=== PATIENT | male | born 1930 | race Caucasian/White ===

== ENCOUNTER 2019-02-20 16:24 | Emergency (ER) | payer MEDICARE, OTHER ==
[~2019-02-20] VITALS: Ht 172.7 cm; Wt 54.4 kg
[2019-02-20] MEDS ORDERED: MORPHINE SULFATE 4 MG/ML SYR/VIAL IV ONE (17:00)
[2019-02-20] MEDS ORDERED: ONDANSETRON HCL 4 MG/2 ML VIAL IV ONE (17:00)
[2019-02-20 18:22] LABS: Basophils # (auto) 0 uL; Eosinophils # (auto) 0 uL; Hematocrit 39.6 % (41.0-53.0); Hemoglobin 13.2 g/dL (13.5-17.5); Lymphocytes # (auto) 0.7 uL; Lymphocytes % (auto) 5.2 % (10.0-50.0); Mean Corpuscular Hemoglobin 32.8 pg (28.0-32.0); Mean Corpuscular Hgb Conc. 33.3 g/dL (32.0-36.0); Mean Corpuscular Volume 98.5 fL (80.0-100.0); Monocytes # (auto) 1.1 uL; Monocytes % (auto) 8.4 % (0.0-12.0); Neutrophils # (auto) 10.9 uL; Neutrophils % (auto) 86.4 % (37.0-80.0); Platelet Count (auto) 204 10^3/uL (140-450); Red Blood Cells 4.02 10^6/uL (4.5-5.90); Red Cell Distribution Width 14.2 % (11.8-14.3); White Blood Cell 12.7 10^3/uL (4.4-10.8)
[2019-02-20 18:34] LABS: Potassium 4.1 mmol/L (3.5-5.1)
[2019-02-20 18:35] LABS: INR 1.03 (0.9-1.15)
[2019-02-20 18:39] LABS: Albumin 2.9 g/dL (3.4-5.0); Calcium 8.4 mg/dL (8.5-10.1)
[2019-02-20 18:44] LABS: BUN/Creatinine Ratio 27.9; Bilirubin, Total 0.2 mg/dL (0.2-1.0); Total Protein 6.4 g/dL (6.4-8.2)
[2019-02-20] MEDS ORDERED: ETOMIDATE (2MG/ML) 20ML VIAL IV ONE (18:45)
[2019-02-20 21:15] VITALS: BP 154/78
== END 2019-02-20 21:35 | disposition home or self-care (01) ==
LOC: EDBD 16:24 → ER 16:35
DX: S73.015A Posterior dislocation of left hip, initial encounter (principal); I10 Essential (primary) hypertension; Z86.73 Personal history of transient ischemic attack (TIA), and cerebral infarction without residual deficits; X50.0XXA Overexertion from strenuous movement or load, initial encounter; Y93.89 Activity, other specified; Y92.89 Other specified places as the place of occurrence of the external cause; Y99.8 Other external cause status
CPT/HCPCS: 27250; 36415; 73501; 73502; 80053; 85025; 85610; 85730; 94761; 99285; J2270; J2405